=== PATIENT | female | born 1965 | race African-American/Black ===

== ENCOUNTER 2020-03-21 21:27 | Emergency (ER) | payer SELFPAY ==
[~2020-03-21] VITALS: Ht 157.5 cm; Wt 70.0 kg
[2020-03-21] MEDS ORDERED: PSEUDOEPHEDRINE HCL 30MG TABLET PO STA (22:35)
[2020-03-21] MEDS ORDERED: KETOROLAC 60MG/2ML VIAL IM ONE (22:45)
[2020-03-21 23:30] VITALS: BP 121/74
== END 2020-03-22 01:12 | disposition home or self-care (01) ==
LOC: ER 21:27 → EDSEX 21:27 → ER 03-22 01:12
DX: R05 Cough (principal); Z20.828 Contact with and (suspected) exposure to other viral communicable diseases; R50.9 Fever, unspecified; I10 Essential (primary) hypertension; Z98.890 Other specified postprocedural states; Z91.010 Allergy to peanuts
CPT/HCPCS: 96372; 99283; C9803; J1885; U0003